=== PATIENT | female | born 1980 | race Caucasian/White ===

== ENCOUNTER 2020-05-06 08:15 | Emergency (ER) | payer OTHER, SELFPAY ==
--- NOTE | ~2020-05-06 | XR_ITS ---
EXAMINATION: XR chest 1V portable DATE: 05/06/2020 09:40 INDICATION: One week of cough and fever. TECHNIQUE: frontal view of the chest was obtained. COMPARISON: None FINDINGS: The lungs are clear with no focal airspace opacities, pulmonary edema, pleural effusion or pneumothor ax. The cardiomediastinal silhouette is normal. Minimal upper thoracic levocurvature. IMPRESSION: 1. No acute cardiopulmonary disease. Reviewed, dictated and finalized at location A.
[2020-05-06 08:40] VITALS: BP 123/80; PULSE 88; RESP 20; TEMP 36.3; O2SAT 98
--- NOTE | 2020-05-06 08:40 | ED.FEVER ---
HPI - Fever General Chief Complaint: Upper Respiratory Infection Stated Complaint: sick for a week Time Seen by Provider: 05/06/20 08:40 Source: patient Mode of arrival: ambulatory Limitations: no limitations History of Present Illness HPI Narrative: 39-year-old woman comes in today complaining of nasal congestion, cough, mild shortness of breath, nausea, vomiting and diarrhea that has occurred all over the last 5 days. She states she has a history of COPD for which she uses inhalers and she has occasional shortness of breath. She works with the public. She denies any known COVID exposures. She also complains of having had an itchy rash on her forearms a few days ago. She states that she has been camping for the last week. She denies finding any attached X nor did she have any joint pain or swelling or unusual bruising. MD elicited complaint: fever and malaise Onset (ago): day(s) (5) Measured temperature: 37.7 C Exacerbating factors: nothing Relieving factors: nothing Associated symptoms: chills, rhinorrhea, cough, shortness of breath, nausea, vomiting, diarrhea and ear ache Related Data Home Medications Medication Instructions Recorded Confirmed albuterol sulfate [Ventolin HFA] 2 puff INHALATION DIRECTED 05/06/20 05/06/20 cyclobenzaprine 10 mg PO DAILY 05/06/20 05/06/20 Allergies Allergy/AdvReac Type Severity Reaction Status Date / Time morphine Allergy Anaphylaxis Verified 05/06/20 09:13 tramadol Allergy Anaphylaxis Verified 05/06/20 09:13 Review of Systems Constitutional: Constitutional: Reports chills, Reports fatigue and Reports fever(s) Eyes: Eyes: Denies change in vision and Denies photophobia ENT: Denies dysphagia, Reports nasal congestion and Denies sore throat Cardiovascular: Cardiovascular: Denies chest pain and Denies radiating jaw, neck or arm pain Respiratory: Respiratory: Denies cough, Reports dyspnea and Denies wheezing Gastrointestinal: Gastrointestinal: Denies abdominal pain, Reports diarrhea, Reports nausea and Reports vomiting Genitourinary: Genitourinary: Denies hematuria, Denies nocturia and Denies dysuria Musculoskeletal: Musculoskeletal: Denies back pain, Denies arthralgias and Denies joint swelling Integumentary/Breasts: Skin/Breast: Reports as per HPI, Reports pruritus, Denies erythema and Reports rash Neurologic: Denies vertigo, Denies dizziness and Denies syncope Endocrine: Endocrine: Denies polydipsia and Denies polyuria Hematologic/Lymphatic: Hematologic/Lymphatic: Denies easy bleeding and Denies easy bruising Allergic/Immunologic: Allergic/Immunologic: Denies lip swelling and Denies tongue swelling PMFSH Past Medical History Medical History COPD (chronic obstructive pulmonary disease) Tubal Surgical History Surgical History H/O laparoscopy History of History of partial hysterectomy Exam Const: General: healthy appearing, no acute distress and alert Orientation/consciousness: patient oriented x3 Limitations: no limitations HENMT: Head: normal to inspection Ears: external ears normal, EAC's normal ( tenderness to palpation of the right tragus) and TM abnormal ( no effusions) retracted bilateral General nose exam: Normal nares present Face and sinus: normal facial exam Mouth: Yes moist mucous membranes Throat: posterior oropharynx normal Eyes: Conjunctivae: conjunctivae normal Pupils: Equal, round and reactive pupils present EOM: EOMs intact bilaterally Resp: Effort & Inspection: normal respiratory effort and not labored Auscultation: clear to auscultation bilaterally, no rales, no rhonchi and no wheezes Cardio: Rate: regular rate Rhythm: regular rhythm Heart sounds: no murmurs Skin: General skin exam: normal color, no jaundice and no pallor Rashes: no rashes Neuro: General: patient oriented x3, moves all extr
[2020-05-06 09:20] LABS: Basophils Absolute Auto 0.03 K/mm3 (0.00-0.10); Basophils Percent Auto 0.4 % (0.0-1.0); Eosinophils Absolute Auto 0.07 K/mm3 (0.02-0.50); Eosinophils Percent Auto 0.9 % (1.0-6.0); Hematocrit 41.2 % (35.0-49.0); Hemoglobin 13.7 g/dL (12.0-15.0); Immature Granulocyte Absolute 0.03 K/mm3 (0.00-0.00); Immature Granulocyte Percent A 0.4 % (0.0-0.0); Lymphocytes Absolute Auto 1.36 K/mm3 (1.10-4.50); Lymphocytes Percent Auto 17.3 % (18.0-42.0); Mean Corpuscular HGB Conc 33.3 g/dL (32.0-36.0); Mean Corpuscular Hemoglobin 29.8 pg (27.0-31.0); Mean Corpuscular Volume 89.6 fL (78.0-102.0); Mean Platelet Volume 10.6 fl (9.2-11.8); Monocytes Absolute Auto 0.48 K/mm3 (0.10-0.90); Monocytes Percent Auto 6.1 % (2.0-11.0); Neutrophils Absolute Auto 5.9 K/mm3 (1.7-7.2); Neutrophils Percent Auto 74.9 % (50.0-70.0); Platelet Count Result 234 K/mm3 (150-420); Red Cell Distribution Width 12.7 % (11.6-14.4); White Blood Count 7.9 K/mm3 (4.8-10.8)
[2020-05-06 09:31] LABS: Partial Thromboplastin Time 29.4 SEC (22.3-31.6); Prothrombin Time 10.1 Seconds (9.64-11.0)
[2020-05-06 09:42] LABS: Influenza Control Valid (Valid)
[2020-05-06 09:43] LABS: Add Urine Microscopic? YES; Appearance Urine Clear (Clear); Bilirubin Urine Negative (Negative); Blood Urine 2+ (Negative); Color Urine Yellow (Yellow); Glucose Urine UA Negative (Negative); Ketones Urine Negative (Negative); Leukocyte Esterase Ur Trace LEU/UL (Negative); Nitrate Urine Negative (Negative); Protein Urine Negative (Negative); Specific Grav Ur >= 1.030 (1.010-1.020); Urobilinogen Urine 0.2 mg/dL (0.2-1.0); pH Urine 5.5 (5.0-8.0)
[2020-05-06 09:46] LABS: Lactic Acid Reflex 1.3 mmol/L (0.4-2.0)
[2020-05-06 09:48] LABS: Bacteria Urine Trace /hpf; Squamous Epithelial Cell Urine Moderate /hpf (Few); WBC Urine 0-3 /hpf (0-3)
[2020-05-06 10:16] LABS: Alanine Aminotransferase 22 U/L (14-59); Albumin Level 4.4 g/dL (3.4-5.0); Alkaline Phosphatase 67 U/L (46-116); Anion Gap 10 mmol/L (8-16); Aspartate Amino Transferase 11 U/L (15-37); Bilirubin,Total 0.5 mg/dL (0.00-1.00); Blood Urea Nitrogen 14 mg/dL (7-18); CRP 0.7 mg/dL (0.0-0.9); Calcium 9.3 mg/dL (8.5-10.1); Carbon Dioxide 26 mmol/L (21-32); Chloride 100 mmol/L (98-108); Estimated CRCL calculation 74 ml/min; Estimated Glomerular Filt Rate > 60; Glucose 90 mg/dL (70-99); Osmolality Calculated 282 mOsm/kg (285-295); Potassium 3.8 mmol/L (3.5-5.1); Sodium 136 mmol/L (136-145); Total Protein 8.6 g/dL (6.4-8.2)
[2020-05-06 10:24] VITALS: BP 121/69; PULSE 82; RESP 20; TEMP 37.1; O2SAT 99
[2020-05-06] MEDS: ONDANSETRON HCL ODT 4 MG TABLET PO (10:26)
[2020-05-07 03:01] LABS: SARS-CoV-2 RNA PCR Negative
== END 2020-05-06 10:44 | disposition home or self-care (01) ==
PROVIDERS: Emergency Provider Emergency Medicine
DX: B34.9 Viral infection, unspecified (principal); K52.9 Noninfective gastroenteritis and colitis, unspecified; H60.501 Unspecified acute noninfective otitis externa, right ear; Z20.828 Contact with and (suspected) exposure to other viral communicable diseases
CPT/HCPCS: 36415; 71045; 80053; 81001; 83605; 85025; 85610; 85730; 86140; 87040; 87635; 87804; 99283; A9270; C9803; U0003

== ENCOUNTER 2022-06-12 14:49 | Emergency (ER) | payer SELFPAY ==
--- NOTE | ~2022-06-12 | XR_ITS ---
XR chest 2V DATE: 06/12/2022 16:08 INDICATION: Cough TECHNIQUE: 2 views COMPARISON: 05/06/2020 portable AP chest FINDINGS: Normal heart size. No hilar or mediastinal enlargement. No pulmonary infiltrate or consolid ation, pleural effusion or pulmonary vascular congestion or pneumothorax is detected. Included skeletal structures are unremarkable. IMPRESSION: No active cardiopulmonary disease Reviewed, dictated and finalized at location A. [employer]
[2022-06-12 14:55] VITALS: BP 107/64; PULSE 89; RESP 18; TEMP 37.1; O2SAT 100
--- NOTE | 2022-06-12 15:05 | ED.URI ---
HPI - URI/Sore Throat General Chief Complaint: Upper Respiratory Infection Stated Complaint: trouble breathing Time Seen by Provider: 06/12/22 14:58 Source: patient Mode of arrival: ambulatory History of Present Illness HPI Narrative: 42-year-old female nonsmoker, works as a last model department supervisor, COVID vaccinated with COVID infection last year per, COPD presents to the ER with a 3 day history of -- sore throat -- cough with mucopurulent sputum -- shortness of breath. the patient is saturating 100% on room air. MD elicited complaint: cough and sore throat Pertinent past history: COPD Onset (ago): day(s) ( started 3 days ago) Consistency: constant Severity: moderate Description of mucous: yellow Able to tolerate fluids by mouth: Yes Exacerbating factors: nothing Relieving factors: nothing Context: sick contacts ( she took care of her grandchild who had an upper respiratory infection.) Treatments prior to arrival: none Related Data Home Medications Medication Instructions Recorded Confirmed albuterol sulfate 90 mcg/actuation 2 puff inhalation DIRECTED 05/06/20 06/12/22 aerosol inhaler (Ventolin HFA) Allergies Allergy/AdvReac Type Severity Reaction Status Date / Time morphine Allergy Anaphylaxis Verified 06/12/22 15:02 tramadol Allergy Anaphylaxis Verified 06/12/22 15:02 Review of Systems Review of Systems: All systems reviewed & are unremarkable except as noted in HPI and below Constitutional: Constitutional: Reports as per HPI and Reports no additional constitutional complaints Eyes: Eyes: Reports as per HPI and Reports no additional eye complaints ENT: Reports system reviewed and no additional complaints, except as documented and Reports as per HPI Cardiovascular: Cardiovascular: Reports as per HPI and Reports no additional cardiovascular complaints Respiratory: Respiratory: Reports as per HPI, Reports no additional respiratory complaints, Reports cough and Reports dyspnea Gastrointestinal: Gastrointestinal: Reports as per HPI and Reports no additional gastrointestinal complaints Genitourinary: Genitourinary: Reports no additional female genitourinary complaints and Reports as per HPI Musculoskeletal: Musculoskeletal: Reports no additional musculoskeletal complaints and Reports as per HPI Integumentary/Breasts: Skin/Breast: Reports system reviewed and no additional complaints, except as docu and Reports as per HPI Neurologic: Reports system reviewed and no additional complaints, except as documented and Reports as per HPI Psychiatric: Psychiatric: Reports no additional psychiatric complaints and Reports as per HPI Endocrine: Endocrine: Reports no additional endocrine complaints and Reports as per HPI Hematologic/Lymphatic: Hematologic/Lymphatic: Reports no additional hematologic/lymphatic complaints and Reports as per HPI Allergic/Immunologic: Allergic/Immunologic: Reports no additional allergic/immunologic complaints and Reports as per HPI PMFSH Past Medical History Medical History COPD (chronic obstructive pulmonary disease) Tubal Surgical History Surgical History H/O laparoscopy History of History of partial hysterectomy Exam Const: General: healthy appearing and no acute distress Nutritional Appearance: well nourished Orientation/consciousness: patient oriented x3 Limitations: no limitations HENMT: Head: normal to inspection Ears: external ears normal Face/Nose/Sinus: Normal external nose present Face and sinus: normal facial exam Mouth: Yes Normal oral and palatal mucosa present Throat: posterior oropharynx normal ( Pharyngeal erythema) Eyes: Conjunctivae: conjunctivae normal Pupils: Equal, round and reactive pupils present EOM: EOMs intact bilaterally Direct Ophthalmoscopy: no photophobia Neck: Neck: normal visual inspection, no meningeal signs
[2022-06-12 15:38] LABS: Strep Group A RT-PCR Not Detected (Negative)
[2022-06-12 15:50] LABS: Influenza A QL RT-PCR Negative (Negative); Influenza B QL RT-PCR Negative (Negative); RSV RNA, RT-PCR Positive (Negative); SARS-CoV-2 RNA PCR Negative (Negative)
[2022-06-12 16:03] VITALS: BP 113/76; PULSE 87; RESP 18; TEMP 36.8; O2SAT 98
[2022-06-12] MEDS: AZITHROMYCIN 250 MG TABLET 500 MG PO (16:25)
== END 2022-06-12 16:32 | disposition home or self-care (01) ==
PROVIDERS: Emergency Provider Internal Medicine Critical Care Medicine; PCP Physician Assistant
DX: J06.9 Acute upper respiratory infection, unspecified (principal); B97.4 Respiratory syncytial virus as the cause of diseases classified elsewhere; J44.1 Chronic obstructive pulmonary disease with (acute) exacerbation; Z20.822 Contact with and (suspected) exposure to COVID-19
CPT/HCPCS: 71046; 87637; 87651; 99283; A9270

== ENCOUNTER 2024-01-07 12:35 | Emergency (ER) | payer SELFPAY ==
[2024-01-07 12:43] VITALS: BP 145/95; PULSE 68; RESP 18; TEMP 37; O2SAT 99
--- NOTE | 2024-01-07 13:11 | ED.GENADULT ---
HPI - General Adult General Chief complaint: Back Pain/Injury Stated complaint: backpain History of Present Illness HPI narrative: This is a 43-year-old female chronic neck pain presenting with neck and shoulder pain. Patient says she has been having her typical neck pain over the last several weeks. This includes pain shoots down right arm in a C5-C6 distribution with no weakness. However couple days ago she started developed pain in her the muscles in her back. It is worse with movement/palpations and deep breaths. No chest pain or shortness of breath. No risk factors for DVT PE. Lower extremity edema. Fevers chills cough She has been taking Tylenol and Midol with some relief. She has seen an orthopedic surgeon he says she has severe she sees at [facility] in the future. Related Data Home Medications Medication Instructions Recorded Confirmed aspirin 81 mg tablet 81 mg PO DAILY 01/07/24 01/07/24 Allergies Allergy/AdvReac Type Severity Reaction Status Date / Time morphine Allergy Anaphylaxis Verified 01/07/24 12:40 oxycodone Allergy Anaphylaxis Verified 01/07/24 12:40 tramadol Allergy Anaphylaxis Verified 01/07/24 12:40 COUNT INCLUDES THE [facility] Past Medical History Medical History Chronic neck pain COPD (chronic obstructive pulmonary disease) Degenerative joint disease Tubal Surgical History Surgical History H/O laparoscopy History of History of partial hysterectomy Exam Narrative: APPEARANCE: No apparent distress. Head: atraumatic. EYES: EOMI, NOSE: Atraumatic NECK/back: patient has positive trigger points in the cervical/trapezius muscles. No midline tenderness. tender to palpation in the parathoracic muscles RESPIRATORY: No increased rate of breathing Clear to auscultation CARDIOVASCULAR: RRR, no peripheral edema ABDOMINAL: Non-distended MUSCULOSKELETAl: No obvious deformities NEURO: Alert. Cranial nerves 2-12 grossly intact. Sensation light touch, motor function cerebellar function intact for 4 extremities. Gait exam was normal. SKIN:: Warm, dry. Normal color PSYCHIATRIC: Normal affect Course Vital Signs Vital signs: Vital Signs Temperature 98.6 F 01/07/24 12:43 Pulse Rate 68 01/07/24 12:43 Respiratory Rate 18 01/07/24 12:43 Blood Pressure 145/95 H 01/07/24 12:43 Pulse Oximetry 99 01/07/24 12:43 Oxygen Delivery Room Air 01/07/24 12:43 Temperature 98.6 F 01/07/24 12:43 Pulse Rate 68 01/07/24 12:43 Respiratory Rate 18 01/07/24 12:43 Blood Pressure 145/95 H 01/07/24 12:43 Pulse Oximetry 99 01/07/24 12:43 Oxygen Delivery Room Air 01/07/24 12:43 Medical Decision Making MDM Narrative Medical decision making narrative: -Course: 43-year-old female acute On chronic neck and back pain. Neck pain associated with right-sided cervical radiculopathy at C6. Now she has developed some thoracic pain which is likely a compensation injury No concerning on history and physical. Treated with Toradol lidocaine patch, robaxin. Patient has appropriate follow-up orthopedics. patient discharged with return precautions. -DDX includes but is not limited to: degenerative joint disease muscle strain muscle spasm cervical radiculopathy, ACS, PE, PNA -Co-morbidities complicating care: chronic pain -Dx tests considered but not ordered: Imaging- known degenerative disease with no new neurologic findings to indicate repeat imaging. -Interventions: Toradol, Robaxin, lidocaine patch -Shared decision making / Disposition: discharge -RX Toradol, naproxen, lidocaine patch, Robaxin Vital Signs Vital Signs: Vital Signs Temperature 98.6 F 01/07/24 12:43 Pulse Rate 68 01/07/24 12:43 Respiratory Rate 18 01/07/24 12:43 Blood Pressure 145/95 H 01/07/24 12:43 Pulse Oximetry 99 01/07/24 12:43 Oxygen Delivery Room Air 01/07/24 12:43
[2024-01-07] MEDS: methocarbamoL 750 MG TABLET PO (13:12)
[2024-01-07] MEDS: KETOROLAC 30 MG/ML VIAL (*BKC) IM (13:13)
[2024-01-07] MEDS: LIDOCAINE 5% PATCH 1 PATCH TRANSDERM (13:13)
== END 2024-01-07 13:27 | disposition home or self-care (01) ==
PROVIDERS: Emergency Provider Emergency Medicine; PCP Physician Assistant
DX: M54.12 Radiculopathy, cervical region (principal); S29.019A Strain of muscle and tendon of unspecified wall of thorax, initial encounter; Z79.82 Long term (current) use of aspirin; X58.XXXA Exposure to other specified factors, initial encounter
CPT/HCPCS: 96372; 99283; A9270; J1885